=== PATIENT | male | born 1985 | race Caucasian/White ===

== ENCOUNTER 2019-02-09 01:23 | Emergency (ER) | payer SELFPAY ==
[~2019-02-09] VITALS: Ht 167.6 cm; Wt 81.4 kg
[2019-02-09 01:30] VITALS: BP 156/90
--- NOTE | 2019-02-09 01:30 | NUR ---
TO BED # 08 AMBULATORY
[2019-02-09] MEDS ORDERED: AZITHROMYCIN 250 MG TAB PO ONE (01:40)
[2019-02-09] MEDS ORDERED: cefTRIAXone 250 MG in LIDOCAINE MPF 1% 0.9 ML IM ONE (01:40)
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
--- NOTE | 2019-02-09 01:45 | NUR ---
Patient being evaluated by physician at bedside.
[2019-02-09 02:06] VITALS: BP 144/82
--- NOTE | 2019-02-09 02:06 | NUR ---
Patient discharged with v/s stable. Written and verbal after care instructions given and explained. Patient alert, oriented and verbalized understanding of instructions. Ambulatory with steady gait. All questions addressed prior to discharge. ID band removed. Patient advised to follow up with PMD. Rx of PYRIDIUM given. Patient educated on indication of medication including possible reaction and side effects. Opportunity to ask questions provided and answered.
[2019-02-12 07:02] LABS: CHLAMYDIA TRACHOMATIS AMP DNA POSITIVE (NEGATIVE)
== END 2019-02-09 02:05 | disposition home or self-care (01) ==
LOC: MED 01:23
DX: A64 Unspecified sexually transmitted disease (principal); Z98.890 Other specified postprocedural states
CPT/HCPCS: 36415; 81002; 81025; 87491; 96372; 99283; J0696; J2001

== ENCOUNTER 2020-11-26 22:02 | Emergency (ER) | payer MEDICAID, OTHER ==
[~2020-11-26] VITALS: Ht 167.6 cm; Wt 80.7 kg
[2020-11-26 22:15] VITALS: BP 150/90
--- NOTE | 2020-11-26 22:15 | NUR ---
TO TENT AMBULATORY
--- NOTE | 2020-11-27 00:08 | NUR ---
PATIENT LEFT WITHOUT BEING SEEN BY DR. PADRON. NO FURTHER CARE PROVIDED FOR PATIENT.
--- NOTE | 2020-11-27 00:08 | NUR ---
CALL, TO [facility] FOR PETER , NO RESPONSE
--- NOTE | 2020-11-27 00:15 | NUR ---
CALLED FOR THE SECOND TIME NO RESPONSE
--- NOTE | 2020-11-27 00:28 | NUR ---
CALLED FOR THE THIRD TIME , SHARRON
== END 2020-11-27 00:28 | disposition left against medical advice (07) ==
LOC: MED 22:02
DX: R05 Cough (principal); R07.9 Chest pain, unspecified; H92.02 Otalgia, left ear; Z53.21 Procedure and treatment not carried out due to patient leaving prior to being seen by health care provider

== ENCOUNTER 2021-12-18 13:09 | Emergency (ER) | payer OTHER ==
[~2021-12-18] VITALS: Ht 167.6 cm; Wt 83.5 kg
[2021-12-18 13:27] VITALS: BP 138/101
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
[2021-12-18] MEDS ORDERED: cefTRIAXone 500 MG in LIDOCAINE MPF 1% 1 ML IM ONE (14:45)
[2021-12-18 15:11] LABS: APPEARANCE,URINE CLEAR (CLEAR); BILIRUBIN,URINE NEGATIVE (NEGATIVE); BLOOD, URINE 1+ (NEGATIVE); COLOR,URINE YELLOW (YELLOW); LEUKOCYTE ESTERASE ,URINE NEGATIVE (NEGATIVE); NITRITE, URINE NEGATIVE (NEGATIVE); UGLUCOSE NEGATIVE (NEGATIVE)
--- NOTE | 2021-12-18 15:16 | NUR ---
PT AMBULATED TO ER BED 12
[2021-12-18] MEDS ORDERED: cefTRIAXone 500 MG VIAL ONE (15:21)
[2021-12-18] MEDS ORDERED: LIDOCAINE MPF 1% 5 ML ONE (15:21)
[2021-12-18 15:34] LABS: OTHER CASTS, URINE None Seen /LPF (None Seen); WBC,URINE 0-5 /HPF (0-5)
[2021-12-18] MEDS ORDERED: PENICILLIN G BENZATHINE L-A 1.2 MU/2 ML SYR IM ONE (15:35)
[2021-12-18] MEDS ORDERED: DOXY-690 PO ×2 (15:48→16:27)
[2021-12-18 16:25] VITALS: BP 138/101
--- NOTE | 2021-12-18 16:25 | NUR ---
Patient discharged with v/s stable. Written and verbal after care instructions ABOUT SYPHILIS given and explained. Patient alert, oriented and verbalized understanding of instructions. Ambulatory with steady gait. All questions addressed prior to discharge. ID band removed. Patient advised to follow up with PMD. Rx of VIBRAMYCIN given. Patient educated on indication of medication including possible reaction and side effects. Opportunity to ask questions provided and answered.
== END 2021-12-18 16:25 | disposition home or self-care (01) ==
LOC: MED 13:09
DX: A53.9 Syphilis, unspecified (principal)
CPT/HCPCS: 81001; 86703; 96372; 99284; J0561; J0696; J2001

== ENCOUNTER 2023-01-17 00:44 | Emergency (ER) | payer OTHER ==
[~2023-01-17] VITALS: Ht 167.6 cm; Wt 81.6 kg
[~2023-01-17 00:44] MED LIST: DOXY-690 PO
[2023-01-17 01:00] VITALS: BP 160/100; PULSE 96; RESP 17; TEMP 97.8; O2SAT 100
== END 2023-01-17 04:23 | disposition left against medical advice (07) ==
LOC: MED 00:44
DX: R10.32 Left lower quadrant pain (principal); Z53.21 Procedure and treatment not carried out due to patient leaving prior to being seen by health care provider
CPT/HCPCS: 99281